=== PATIENT | female | born 1965 | race American Indian/Alaskan Native ===

== ENCOUNTER 2020-02-09 08:34 | Emergency (ER) | payer BC ==
[2020-02-09 08:37] VITALS: BP 137/84
--- NOTE | 2020-02-09 09:07 | Emergency Department Report ---
HPI - General Chief Complaint: Earache Time Seen by Provider: 02/09/20 09:03 - HPI HPI: This is a 54-year-old female, who is an employee at this hospital, who presents with a complaint of a 1 week history of some fullness to the right ear. She denies any decreased hearing or any significant pain. She says "I just want to make sure my ear is okay." She says that sometimes she will have some congestion in the inner ear and "it can throw off my balance." No fever, headache. She has been putting sweet oil in the ear. ED Past Medical Hx - Past Medical History Previous Medical History?: No - Surgical History Past Surgical History?: No ED Review of Systems ROS: Stated complaint: RT EAR PAIN Other details as noted in HPI Comment: All other systems reviewed and negative Constitutional: denies: chills, fever ENT: ear pain. denies: throat pain Respiratory: denies: cough, shortness of breath Neurological: denies: headache Physical Exam - Physical Exam Vital Signs: Vital Signs 02/09/20 08:37 Temperature 97.9 F Pulse Rate 96 H Respiratory 16 Rate Blood Pressure 137/84 [Right] O2 Sat by Pulse 97 Oximetry Physical Exam: GENERAL: The patient is well-developed well-nourished. HENT: Normocephalic. Atraumatic. Patient has moist mucous membranes. Normal -appearing bilateral external ear canals and tympanic membranes. EYES: Extraocular motions are intact. NECK: Supple. Trachea is midline. SKIN: Skin is warm and dry. NEURO: The patient is awake, alert, and oriented. The patient is cooperative. Normal speech. MUSCULOSKELETAL: There is no obvious deformity. There is no evidence of acute injury. ED Course Vital Signs 02/09/20 08:37 Temperature 97.9 F Pulse Rate 96 H Respiratory 16 Rate Blood Pressure 137/84 [Right] O2 Sat by Pulse 97 Oximetry ED Medical Decision Making - Medical Decision Making This patient presents for evaluation of some right ear fullness/discomfort. On examination there are normal-appearing external ear canals and tympanic membranes. Patient has no complaints of any nasal congestion or any other upper respiratory symptoms. She will be discharged home to follow-up with a PCP and has been given a referral for otolaryngology. Critical Care Time: No Critical care attestation.: If time is entered above; I have spent that time in minutes in the direct care of this critically ill patient, excluding procedure time. ED Disposition Clinical Impression: Otalgia of right ear Disposition: TO HOME OR SELFCARE Is pt being admited?: No Condition: Stable Instructions: Earache (ED) Additional Instructions: Please follow-up with a primary care physician. I am giving you a referral for a local transportation inspector, ENT, Dr. Quinones. Return to the emergency department with any worsening of your symptoms, new or concerning symptoms not addressed during this current emergency department visit, or with any acute distress. Referrals: RORO QUINONES MD [Staff Physician] - 3-5 Days Time of Disposition: 09:07
== END 2020-02-09 09:16 | disposition home or self-care (01) ==
LOC: ED 08:34
DX: H92.01 Otalgia, right ear (principal)
CPT/HCPCS: 99281

== ENCOUNTER 2020-07-17 10:03 | Outpatient (CLI) | payer BC ==
[2020-07-17 10:29] LABS: Bilirubin,Urine NEG (Negative); Blood,Urine NEG (Negative); Color,Urine Colorless (Yellow); Protein,Urine <15 mg/dL mg/dL (Negative); Urobilinogen,Urine < 2.0 mg/dL (<2.0); WBC,Urine < 1.0 /HPF (0.0-6.0)
[2020-07-17 10:33] LABS: Basophils # (Auto) 0.1 K/mm3 (0.0-0.1); Basophils % (Auto) 1.3 % (0.0-1.8); Eosinophils # (Auto) 0.1 K/mm3 (0.0-0.4); Eosinophils % (Auto) 2.3 % (0.0-4.3); Hematocrit 41.3 % (30.3-42.9); Hemoglobin 14.2 gm/dl (10.1-14.3); Lymphocytes # (Auto) 2.4 K/mm3 (1.2-5.4); Lymphocytes % (Auto) 50.1 % (13.4-35.0); Mean Corpuscular HGB Conc 34 % (30-34); Mean Corpuscular Volume 92 fl (79-97); Monocytes # (Auto) 0.4 K/mm3 (0.0-0.8); Monocytes % (Auto) 9.3 % (0.0-7.3); Platelet Count 261 K/mm3 (140-440); Red Blood Count 4.47 M/mm3 (3.65-5.03); Red Cell Distribution Width 12.5 % (13.2-15.2)
[2020-07-17 10:50] LABS: Alanine Aminotransferase 18 units/L (7-56); Albumin 4.1 g/dL (3.9-5); Blood Urea Nitrogen 8 mg/dL (7-17); Chol/HDL Ratio 2.79 %; HDL Cholesterol 72 mg/dL (40-59); Hemolysis Index 5; LDL Cholesterol,Direct 128 mg/dL (50-130)
[2020-07-17 10:54] LABS: BUN/Creatinine Ratio 13
== END 2020-07-17 10:04 | disposition home or self-care (01) ==
LOC: LAB 10:03
PROVIDERS: ATTEND Internal Medicine
DX: Z00.00 Encounter for general adult medical examination without abnormal findings (principal); E78.2 Mixed hyperlipidemia; E03.9 Hypothyroidism, unspecified
CPT/HCPCS: 36415; 80053; 80061; 81001; 84443; 85025

== ENCOUNTER 2020-08-04 07:40 | Outpatient (CLI) | payer BC ==
[2020-08-04 15:01] LABS: Hepatitis B Surface Antigen Non-Reactive (Negative); Hepatitis C Virus Antibody Non-Reactive (NonReactive)
== END 2020-08-04 07:41 | disposition home or self-care (01) ==
LOC: LAB 07:40
PROVIDERS: ATTEND Internal Medicine
DX: Z03.818 Encounter for observation for suspected exposure to other biological agents ruled out (principal); R78.4 Finding of other drugs of addictive potential in blood; E03.9 Hypothyroidism, unspecified; I25.10 Atherosclerotic heart disease of native coronary artery without angina pectoris
CPT/HCPCS: 36415; 80074; 84436; 84443; 86140; 86706

== ENCOUNTER 2020-08-05 07:27 | Outpatient (CLI) | payer BC ==
--- NOTE | 2020-08-05 09:04 | Vascular Lab Report ---
DUPLEX DOPPLER ULTRASOUND CAROTID, BILATERAL INDICATION / CLINICAL INFORMATION: OCCLUSION AND STENOSIS OF BILATERAL CAROTID ARTERIES. COMPARISON: None available. FINDINGS: RIGHT CAROTID: No significant atherosclerotic plaque visualized. - PLAQUE ESTIMATE (%): < 50% - CCA velocity: 56 cm/sec. - ICA peak systolic velocity: 102 cm/sec. - ICA/CCA PSV Ratio: 1.8 Right Vertebral Artery: Antegrade flow. LEFT CAROTID: No significant atherosclerotic plaque visualized. - PLAQUE ESTIMATE: < 50% - CCA velocity: 75 cm/sec. - ICA peak systolic velocity: 87 cm/sec. - ICA/CCA PSV Ratio: 1.2 Left Vertebral Artery: Antegrade flow. IMPRESSION: 1. Right Internal Carotid Artery: Less than 50% diameter stenosis. 2. Left Internal Carotid Artery: Less than 50% diameter stenosis. Velocity criteria are extrapolated from diameter data as defined by the Society of Radiologists in Ul trasound Consensus Conference, Radiology 2003; 229;340-346. NO STENOSIS (NORMAL) * Plaque = none; ICA PSV < 125 cm/sec; ICA/CCA PSV Ratio < 2.0 <50% STENOSIS * Plaque < 50%; ICA PSV < 125 cm/sec; ICA/CCA PSV Ratio < 2.0 50-69% STENOSIS * Plaque > 50%; ICA PSV = 125-230 cm/sec; ICA/CCA PSV Ratio = 2.0-4.0 >70% BUT <100% STENOSIS * Plaque > 50%; ICA PSV < 230 cm/sec; ICA/CCA PSV Ratio > 4.0 NEAR OCCLUSION * Plaque = visible lumen; ICA PSV = high/low/none; ICA/CCA PSV Ratio = variable TOTAL OCCLUSION * Plaque = no lumen; ICA PSV = none; ICA/CCA PSV Ratio = N/A Signer Name: Hieu Serna MD Signed: 08/05/2020 8:59 AM Workstation Name: [id number]
== END 2020-08-05 07:28 | disposition home or self-care (01) ==
LOC: VAS 07:27
PROVIDERS: ATTEND Internal Medicine
DX: I65.23 Occlusion and stenosis of bilateral carotid arteries (principal)
CPT/HCPCS: 93880

== ENCOUNTER 2020-10-09 06:38 | Outpatient (CLI) | payer BC ==
--- NOTE | 2020-10-09 08:58 | Ultrasound Report ---
ULTRASOUND ABDOMEN, COMPLETE INDICATION: R10.00. Right upper quadrant abdominal pain COMPARISON: No relevant prior imaging study available. FINDINGS: Pancreas: No significant abnormality. Abdominal Aorta: No significant abnormality. IVC: No significant abnormality. Liver: The liver measures 13.8 cm in length. No significant abnormality. Normal hepatopedal blood fl ow in the main portal vein. Gallbladder: Trace sludge is identified in the gallbladder. No evidence for gallstones, wall thickeni ng or surrounding fluid. No abnormal distention. Bile ducts: No significant abnormality. Common bile duct measures 2.7 mm. Kidneys: Right: 9.7 cm in length. No significant abnormality. Left: 9.7 cm in length. No signific ant abnormality. Spleen: No significant abnormality. Free fluid: None. Additional Findings: None. IMPRESSION: Trace sludge in the gallbladder, otherwise, unremarkable exam. Signer Name: Min Hdz Jr, MD Signed: 10/09/2020 8:53 AM Workstation Name: [id number]
== END 2020-10-09 06:39 | disposition home or self-care (01) ==
LOC: US 06:38
PROVIDERS: ATTEND Internal Medicine
DX: R10.9 Unspecified abdominal pain (principal)
CPT/HCPCS: 76700

== ENCOUNTER 2020-10-16 07:16 | Outpatient (CLI) | payer BC ==
--- NOTE | 2020-10-16 09:02 | Cat Scan Report ---
CT HEAD WITHOUT CONTRAST INDICATION / CLINICAL INFORMATION: DAILY PERSISTANT HEADACHES. TECHNIQUE: Axial imaging performed from the skull apex through the skull base without the use of cont rast. Sagittal and coronal reformatted images. All CT scans at this location are performed using CT dose reduction for ALARA by means of automated exposure control. COMPARISON: None available. FINDINGS: CEREBRAL PARENCHYMA: No significant abnormality. No acute territorial infarct. HEMORRHAGE: None. EXTRA-AXIAL SPACES: Normal in size and morphology for the patient's age. VENTRICULAR SYSTEM: Normal in size and morphology for the patient's age. MIDLINE SHIFT OR HERNIATION: None. CEREBELLUM / BRAINSTEM: No significant abnormality. CALVARIUM: No significant abnormality. ORBITS: Normal as visualized. PARANASAL SINUSES / MASTOID AIR CELLS: Normal as visualized. SOFT TISSUES of HEAD: No significant abnormality. ADDITIONAL FINDINGS: None. IMPRESSION: No acute intracranial abnormality. Cranial CT scan within normal limits. Signer Name: Min Hdz Jr, MD Signed: 10/16/2020 8:58 AM Workstation Name: [id number]
--- NOTE | 2020-10-16 09:10 | Magnetic Resonance Report ---
MR lumbar spine wo con INDICATION / CLINICAL INFORMATION: 55 years Female; SCIATICA LEFT LEG/LUMBAR. TECHNIQUE: Multisequence, multiplanar images of the lumbar spine were obtained. COMPARISON: None available. FINDINGS: ALIGNMENT: Normal lumbar lordosis without significant scoliosis. VERTEBRAE:There are mild degenerative endplate changes and edema at L5-S1. VISUALIZED SPINAL CORD: No significant abnormality. KECHY-CS-MKPPC ANALYSIS: L1-2: No significant abnormality. L2-3: No significant abnormality. L3-4: No significant abnormality. L4-5: There is a left foraminal disc bulge and annular tear with milder narrowing at. There is no sig nificant central stenosis. L5-S1: There is a broad-based disc bulge which mildly deforms the ventral thecal sac and effaces the lateral recesses, greater on the right at. The facet joint arthropathy contributes to moderate to for aminal narrowing bilaterally. PARASPINAL SOFT TISSUES: No significant abnormality. ADDITIONAL FINDINGS: No epidural collections are identified. IMPRESSION: 1. There are moderate degenerative disc changes at L5-S1 with broad-based disc bulge which effaces th e lateral recesses, greater on the right. Additionally, there is moderate neural foraminal narrowing bilaterally Signer Name: Clovis Son MD Signed: 10/16/2020 9:05 AM Workstation Name: [id number]
== END 2020-10-16 07:17 | disposition home or self-care (01) ==
LOC: CT 07:16
PROVIDERS: ATTEND Internal Medicine
DX: M47.817 Spondylosis without myelopathy or radiculopathy, lumbosacral region (principal); M48.07 Spinal stenosis, lumbosacral region; G44.52 New daily persistent headache (NDPH); M54.32 Sciatica, left side; M54.40 Lumbago with sciatica, unspecified side
CPT/HCPCS: 70450; 72148

== ENCOUNTER 2021-02-19 11:00 | Outpatient (CLI) | payer BC ==
[2021-02-19 11:19] LABS: Basophils % (Auto) 0.9 % (0.0-1.8); Eosinophils # (Auto) 0.1 K/mm3 (0.0-0.4); Eosinophils % (Auto) 1.6 % (0.0-4.3); Hematocrit 38.6 % (30.3-42.9); Hemoglobin 13.1 gm/dl (10.1-14.3); Lymphocytes # (Auto) 1.9 K/mm3 (1.2-5.4); Lymphocytes % (Auto) 39.6 % (13.4-35.0); Mean Corpuscular HGB Conc 34 % (30-34); Mean Corpuscular Volume 90 fl (79-97); Monocytes # (Auto) 0.5 K/mm3 (0.0-0.8); Monocytes % (Auto) 9.4 % (0.0-7.3); Platelet Count 253 K/mm3 (140-440); Red Blood Count 4.28 M/mm3 (3.65-5.03); Red Cell Distribution Width 12.3 % (13.2-15.2)
[2021-02-19 11:40] LABS: Alanine Aminotransferase 27 units/L (7-56); Albumin 3.8 g/dL (3.9-5); Blood Urea Nitrogen 13 mg/dL (7-17); Calcium 8.6 mg/dL (8.4-10.2); Chol/HDL Ratio 3.15 %; HDL Cholesterol 58 mg/dL (40-59); Hemolysis Index 5; LDL Cholesterol,Direct 112 mg/dL (50-130)
[2021-02-19 11:41] LABS: BUN/Creatinine Ratio 22
[2021-02-19 11:52] LABS: Bilirubin,Urine NEG (Negative); Blood,Urine SM (Negative); Color,Urine Yellow (Yellow); Mucus,Urine 2+ /HPF
== END 2021-02-19 11:01 | disposition home or self-care (01) ==
LOC: LAB 11:00
PROVIDERS: ATTEND Internal Medicine
DX: N30.00 Acute cystitis without hematuria (principal); E03.9 Hypothyroidism, unspecified; E78.2 Mixed hyperlipidemia; I10 Essential (primary) hypertension
CPT/HCPCS: 36415; 80053; 80061; 81001; 84436; 84443; 85025; 87086

== ENCOUNTER 2021-04-23 08:22 | Outpatient (CLI) | payer BC ==
--- NOTE | 2021-04-23 10:27 | XRay Report ---
Cervical spine 4 views INDICATION: Neck pain FINDINGS: Discogenic degenerative change. Endplate changes with disc osteophytes at C4-C5, C5-C6 and C6-C7. Odontoid appears intact. No prevertebral soft tissue swelling. No subluxation. Signer Name: Saul Patricia MD Signed: 04/23/2021 10:23 AM Workstation Name: [email or web address] [id number]
--- NOTE | 2021-04-23 11:04 | Electrocardiograph Report ---
[facility] Test Date: 2021-04-23 Test Time: 09:12:39 Pat Name: APARNA MESSINA Department: Room: Gender: F [employer]: INDRA : 1965 Requested By: ROSINA NIETO Order Number: [id number] Reading MD: Awais Zarate Measurements Intervals Sylvia Rate: 59 P: 44 IL: 180 QRS: 31 QRSD: 69 T: 35 QT: 398 QTc: 394 Interpretive Statements Sinus rhythm Low voltage, precordial leads No previous ECG available for comparison Electronically Signed On 04-23-2021 11:03:51 EST by Awais Zarate
[2021-04-27 21:35] LABS: ANA Screen, IFA Negative (Negative)
== END 2021-04-23 08:23 | disposition home or self-care (01) ==
LOC: LAB 08:22
PROVIDERS: ATTEND Internal Medicine
DX: M47.812 Spondylosis without myelopathy or radiculopathy, cervical region (principal); I25.10 Atherosclerotic heart disease of native coronary artery without angina pectoris
CPT/HCPCS: 36415; 72040; 86038; 86200; 86431; 93005

== ENCOUNTER 2021-11-04 06:56 | Outpatient (CLI) | payer BC ==
[2021-11-04 07:23] LABS: Basophils # (Auto) 0.1 K/mm3 (0.0-0.1); Basophils % (Auto) 1.2 % (0.0-1.8); Eosinophils # (Auto) 0.2 K/mm3 (0.0-0.4); Eosinophils % (Auto) 3.4 % (0.0-4.3); Hematocrit 43.2 % (30.3-42.9); Hemoglobin 14.4 gm/dl (10.1-14.3); Lymphocytes # (Auto) 1.7 K/mm3 (1.2-5.4); Mean Corpuscular HGB Conc 33 % (30-34); Mean Corpuscular Volume 91 fl (79-97); Monocytes # (Auto) 0.4 K/mm3 (0.0-0.8); Monocytes % (Auto) 9.5 % (0.0-7.3); Platelet Count 301 K/mm3 (140-440); Red Blood Count 4.74 M/mm3 (3.65-5.03); Red Cell Distribution Width 12.6 % (13.2-15.2)
[2021-11-04 07:32] LABS: Bacteria,Urine 1+ /HPF (Negative); Hyaline Casts,Urine 4 /LPF; Mucus,Urine 2+ /HPF
[2021-11-04 07:34] LABS: Color,Urine Yellow (Yellow)
[2021-11-04 07:35] LABS: Bilirubin,Urine Negative (Negative)
[2021-11-04 07:36] LABS: Blood,Urine Trace (Negative); Protein,Urine <30 mg dL mg/dL (Negative); Urobilinogen,Urine < 2.0 mg/dL (<2.0)
[2021-11-04 08:23] LABS: Alanine Aminotransferase 19 units/L (7-56); Albumin 4.5 g/dL (3.9-5); Blood Urea Nitrogen 11 mg/dL (7-17); Calcium 9.5 mg/dL (8.4-10.2); Chol/HDL Ratio 3.05 %; HDL Cholesterol 70 mg/dL (40-59); Hemolysis Index 7; LDL Cholesterol,Direct 137 mg/dL (50-130)
[2021-11-04 08:26] LABS: BUN/Creatinine Ratio 14
== END 2021-11-04 06:57 | disposition home or self-care (01) ==
LOC: LAB 06:56
PROVIDERS: ATTEND Internal Medicine
DX: Z00.01 Encounter for general adult medical examination with abnormal findings (principal); I10 Essential (primary) hypertension; E78.2 Mixed hyperlipidemia; E03.9 Hypothyroidism, unspecified
CPT/HCPCS: 36415; 80053; 80061; 81001; 84436; 84443; 85025

== ENCOUNTER 2021-12-10 07:08 | Outpatient (CLI) | payer BC ==
--- NOTE | 2021-12-10 09:04 | Vascular Lab Report ---
DUPLEX DOPPLER ULTRASOUND CAROTID, BILATERAL INDICATION / CLINICAL INFORMATION: I65.23 stenosis of bilateral carotid arteries. COMPARISON: None available. FINDINGS: RIGHT CAROTID: - PLAQUE ESTIMATE (%): < 50% - CCA velocity: 66 cm/sec. - ICA peak systolic velocity: 84 cm/sec. - ICA/CCA PSV Ratio: 1.28 Right Vertebral Artery: Antegrade flow. LEFT CAROTID: - PLAQUE ESTIMATE: < 50% - CCA velocity: 83 cm/sec. - ICA peak systolic velocity: 154 cm/sec. - ICA/CCA PSV Ratio: 1.87 Left Vertebral Artery: Antegrade flow. IMPRESSION: 1. Right Internal Carotid Artery: Less than 50% diameter stenosis. 2. Left Internal Carotid Artery: 50-69% diameter stenosis. Velocity criteria are extrapolated from diameter data as defined by the Society of Radiologists in Ul trasound Consensus Conference, Radiology 2003; 229;340-346. NO STENOSIS (NORMAL) * Plaque = none; ICA PSV < 125 cm/sec; ICA/CCA PSV Ratio < 2.0 <50% STENOSIS * Plaque < 50%; ICA PSV < 125 cm/sec; ICA/CCA PSV Ratio < 2.0 50-69% STENOSIS * Plaque > 50%; ICA PSV = 125-230 cm/sec; ICA/CCA PSV Ratio = 2.0-4.0 >70% BUT <100% STENOSIS * Plaque > 50%; ICA PSV > 230 cm/sec; ICA/CCA PSV Ratio > 4.0 NEAR OCCLUSION * Plaque = visible lumen; ICA PSV = high/low/none; ICA/CCA PSV Ratio = variable TOTAL OCCLUSION * Plaque = no lumen; ICA PSV = none; ICA/CCA PSV Ratio = N/A Signer Name: Saul Patricia MD Signed: 12/10/2021 9:00 AM Workstation Name: [email or web address]
--- NOTE | 2021-12-10 09:10 | XRay Report ---
BILATERAL KNEES 3 VIEWS INDICATION: M17.0 Bilateral primary osteoarthritis of knee. COMPARISON: None. IMPRESSION: Bone mineralization appears normal. No evidence for fracture, bone lesion or significan t degenerative changes. The soft tissues are unremarkable. Signer Name: Min Hdz Jr, MD Signed: 12/10/2021 9:05 AM Workstation Name: [id number]
== END 2021-12-10 07:09 | disposition home or self-care (01) ==
LOC: VAS 07:08
PROVIDERS: ATTEND Internal Medicine
DX: I65.23 Occlusion and stenosis of bilateral carotid arteries (principal); M17.0 Bilateral primary osteoarthritis of knee
CPT/HCPCS: 93880

== ENCOUNTER 2021-12-30 11:19 | Outpatient (CLI) | payer BC ==
--- NOTE | 2021-12-31 11:05 | Mammography Report ---
DIGITAL SCREENING MAMMOGRAM WITH TOMOSYNTHESIS WITH CAD, 12/30/2021 CLINICAL INFORMATION / INDICATION: Routine Screening Mammography. SCREENING MAMMO Z12.31 WITH FAHAD. TECHNIQUE: Digital bilateral 2D and 3D mammography with tomosynthesis was obtained in the craniocauda l and mediolateral oblique projections. Computer-Aided Detection (CAD) analysis was used for interpr etation of this study. COMPARISON: Baseline FINDINGS: Breast Density: The breasts are heterogeneously dense, which may obscure small masses. No dominant mass, suspicious calcifications, or architectural distortion in the right breast. There are nodules in the left breast in the 2 to 3:00 position and in the 6:00 position IMPRESSION: Further evaluation nodules on the left is recommended. Follow up recommendation: Ultrasound BI-RADS Category 0: INCOMPLETE. Needs additional imaging evaluation and/or prior mammograms for shawn rolleon. A "normal" or negative report should not discourage follow up or biopsy of a clinically significant f inding. A written summary of these findings will be mailed to the patient. The patient will be entered into a mammography reporting system which will generate a reminder letter for the patient's next appointmen t at the appropriate interval. The [employer] recommends yearly mammograms starting at age 40 and continuing as l maria esther as a woman is in good health. Breast MRI is recommended for women with an approximate 20-25% or greater lifetime risk of breast cancer, including women with a strong family history of breast or ova gely cancer or who have been treated for Hodgkin's disease. Signer Name: Vitor Live MD Signed: 12/31/2021 11:00 AM Workstation Name: [email or web address]
== END 2021-12-30 11:20 | disposition home or self-care (01) ==
LOC: SPVWC 11:19
PROVIDERS: ATTEND Internal Medicine
DX: Z12.31 Encounter for screening mammogram for malignant neoplasm of breast (principal); N63.23 Unspecified lump in the left breast, lower outer quadrant
CPT/HCPCS: 77063; 77067